=== PATIENT | male | born 1990 | race Two or more races ===

== ENCOUNTER 2025-02-09 03:08 | Emergency (ER) | payer MEDICAID, OTHER ==
[~2025-02-09] VITALS: Ht 182.9 cm; Wt 86.0 kg
[2025-02-09 03:08] VITALS: PULSE 98; RESP 22; O2SAT 98
[2025-02-09] MEDS ORDERED: IBUPROFEN 800 MG TAB PO ONE (04:00)
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
[2025-02-09] MEDS: InsuLIN REG 1unit/0.01ml Soln (100units/ml) IV ONE (04:39)
[2025-02-09] MEDS: SODIUM CHLORIDE 0.9% 2,000 ML IV ONE (04:39)
== END 2025-02-09 06:22 | disposition left against medical advice (07) ==
LOC: ER 03:08 → EDBD 03:08 → ER 06:22
DX: S13.4XXA Sprain of ligaments of cervical spine, initial encounter (principal); S33.5XXA Sprain of ligaments of lumbar spine, initial encounter; S46.911A Strain of unspecified muscle, fascia and tendon at shoulder and upper arm level, right arm, initial encounter; S20.211A Contusion of right front wall of thorax, initial encounter; R73.9 Hyperglycemia, unspecified; V89.2XXA Person injured in unspecified motor-vehicle accident, traffic, initial encounter; Y93.89 Activity, other specified; Y92.488 Other paved roadways as the place of occurrence of the external cause; Y99.8 Other external cause status
CPT/HCPCS: 96361; 96374; 99283; J1815; J7030